=== PATIENT | female | born 1995 | race African-American/Black ===

== ENCOUNTER 2017-05-05 12:45 | Emergency (ER) | payer SELFPAY ==
[~2017-05-05] VITALS: Ht 165.1 cm; Wt 81.0 kg
[2017-05-05 12:49] VITALS: BP 110/60
== END 2017-05-05 14:57 | disposition left against medical advice (07) ==
LOC: EMS 12:47
DX: R10.31 Right lower quadrant pain (principal); R10.32 Left lower quadrant pain; Z53.21 Procedure and treatment not carried out due to patient leaving prior to being seen by health care provider